=== PATIENT | female | born 1970 | race Hispanic/Latino ===

== ENCOUNTER 2017-02-15 11:48 | Emergency (ER) | payer MEDICAID ==
[2017-02-15] MEDS ORDERED: MORPHINE IV ONE (12:21)
[2017-02-15] MEDS ORDERED: ZOFRAN IV ONE (12:22)
--- NOTE | 2017-02-15 12:38 | Emergency Department Report ---
HPI - General Chief Complaint: Chest Pain Time Seen by Provider: 02/15/17 12:09 - HPI HPI: This is a 46-year-old female who presents to the emergency Department , after driving herself in to be seen, with complaint of chest pain that began around 8:30 AM this morning. It is been consistent since that time. It is midsternal to left side with some radiation up to the left side of the jaw, down to the left arm and across her back. It is associated with some nausea without vomiting and some shortness of breath. She tried some nitroglycerin 3 sublingual and a full dose aspirin for her symptoms prior to arrival without any relief. The patient has a history of CVA 3, DVT, PE, hypertension, hypothyroidism, hypercholesterol, CHF. The patient was here at [facility] in August of last year and had a cardiac catheterization that did not show any significant occlusions or ischemia and no stents were placed at that time. She also had normal LV function. Patient's primary care doctor is a Luz Naranjo. She sees a legal analyst through the [facility] group but her specific legal analyst just recently . No recent travel or sick contacts at home. ED Past Medical Hx - Past Medical History Previous Medical History?: Yes Hx Hypertension: Yes Hx CVA: Yes (left side slight weaker.) Hx Congestive Heart Failure: Yes Hx Diabetes: No Hx Deep Vein Thrombosis: Yes Hx Pulmonary Embolism: Yes (On Eloquis) Hx Seizures: Yes Hx Asthma: No Hx COPD: No Hx HIV: No Additional medical history: high cholesterol, hypothyroid - Surgical History Past Surgical History?: Yes Hx Cholecystectomy: Yes Hx Appendectomy: Yes Additional Surgical History: Left foot/ankle reconstruction, x3, sinus surgery Hyster - Social History Smoking Status: Never Smoker Substance Use Type: Prescribed - Medications Home Medications: Home Medications Medication Instructions Recorded Confirmed Last Taken Type FLUoxetine [PROzac] 10 mg PO QDAY 07/11/16 08/04/16 1 Day Ago History 10 Levothyroxine [Synthroid] 25 mcg PO QAM 07/11/16 08/04/16 1 Day Ago History 25 [place] Carbonate [Eskalith] 300 mg PO BID 07/11/16 08/04/16 1 Day Ago History 300 Nitroglycerin [Nitrostat] 0.4 mg SL Q5M PRN 07/11/16 08/04/16 1 Day Ago History 0.4 Pravastatin Sodium [Pravastatin] 10 mg PO QAM 07/11/16 08/04/16 1 Day Ago History 10 amLODIPine [Norvasc] 5 mg PO DAILY 07/11/16 08/04/16 1 Day Ago History 5 clonazePAM [KlonoPIN] 2 mg PO TID PRN 07/11/16 08/04/16 1 Day Ago History 2 levETIRAcetam [Keppra TAB] 1,500 mg PO BID 07/11/16 08/04/16 1 Day Ago History 1500 oxyCODONE /ACETAMINOPHEN [Percocet 1 tab PO Q12H PRN #8 tablet 07/12/16 1 Day Ago Rx 5/325 mg] 1 Aspirin [Aspirin BABY CHEW TAB] 81 mg PO QDAY 08/04/16 08/04/16 1 Day Ago History 81 Zolpidem [Ambien] 10 mg PO QHS 08/04/16 08/04/16 1 Day Ago History 10 Famotidine [Pepcid] 20 mg PO BID #60 tablet 08/06/16 Unknown Rx Pantoprazole [Protonix] 40 mg PO QDAY #30 tablet 02/15/17 Unknown Rx Sucralfate [Carafate] 1 gm PO ACHS #28 tablet 02/15/17 Unknown Rx ED Review of Systems ROS: Stated complaint: CHEST PAIN Other details as noted in HPI Comment: All other systems reviewed and negative Constitutional: denies: chills, fever Eyes: denies: eye pain, eye discharge, vision change ENT: denies: ear pain, throat pain Respiratory: shortness of breath. denies: cough Cardiovascular: chest pain. denies: palpitations Gastrointestinal: nausea. denies: abdominal pain Genitourinary: denies: urgency, dysuria, discharge Musculoskeletal: denies: back pain, joint swelling, arthralgia Skin: denies: rash, lesions Neurological: denies: headache, weakness, paresthesias Physical Exam - Physical Exam Vital Signs: Vital Signs 02/15/17 11:59 Temperature 98.6 F Pulse Rate 88 Respiratory 20 Rate Blood Pressure 144/92 O2 Sat by Pulse 100 Oximetry Physical Exam: GENERAL: The patient is well-developed well-nourished. HEENT: Normocephalic. Atraumatic. Extraocular motions are intact. Patient has moist mucous membranes. Pupils equal reactive to light bilaterally. NECK: Supple. Trachea is below. CHEST/LUNGS: Clear to auscultation. There is no respiratory distress noted. Chest pain is not reproducible to palpation of chest wall. HEART/CARDIOVASCULAR: Regular. There is no tachycardia. There is no gallop rub or murmur. ABDOMEN: Abdomen is soft, nontender. Patient has normal bowel sounds. There is no abdominal distention. SKIN: Skin is warm and dry. NEURO: The patient is awake, alert, and oriented. The patient is cooperative. The patient has no focal neurologic deficits. The patient has normal speech. MUSCULOSKELETAL: There is no tenderness or deformity. There is no limitation range of motion. There is no evidence of acute injury. ED Course Vital Signs 02/15/17 11:59 Temperature 98.6 F Pulse Rate 88 Respiratory 20 Rate Blood Pressure 144/92 O2 Sat by Pulse 100 Oximetry ED Medical Decision Making - Lab Data Result diagrams: 02/15/17 12:16 02/15/17 12:16 - EKG Data -: EKG Interpreted by Me EKG shows normal: sinus rhythm, axis (LAD), intervals, QRS complexes (LVH), ST- T waves (Non-specific ST-T) Rate: normal - EKG Data When compared to previous EKG there are: no significant change Interpretation: unchanged when compared t (08/04/16) - Radiology Data Radiology results: image reviewed interpreted by me: Chest x-ray did not show any acute process. Heart is normal shape and size. No effusions. No pneumothorax. No signs of pneumonia seen. - Medical Decision Making 46-year-old female presents the emergency department with complaint of left- sided chest pain with radiation to the jaw, arm and across the back. While the patient appears to have some records that stated the patient had a negative heart cath about 6 month ago, the patient is adamant that she was never previously admitted and never had a heart cath here at [facility]. Patient's labs of so far been unremarkable including a negative d-dimer and negative troponins 2. EKG does not show any signs of ST elevation HI. The patient will be seen by the admitting hospitalist, dr Resendiz, for further evaluation and either consultation or admission. - Differential Diagnosis HI, PE, CHF, Pneumonia Critical Care Time: No Critical care attestation.: If time is entered above; I have spent that time in minutes in the direct care of this critically ill patient, excluding procedure time. ED Disposition Clinical Impression: Chest pain Qualifiers: Chest pain type: unspecified Qualified Code(s): R07.9 - Chest pain, unspecified Disposition: OP ADMITTED IP TO THIS HOSP Is pt being admited?: Yes Condition: Stable Instructions: Chest Pain (ED) Prescriptions: Pantoprazole [Protonix] 40 mg PO QDAY #30 tablet Sucralfate [Carafate] 1 gm PO ACHS #28 tablet Referrals: PRIMARY CARE, [Primary Care Provider] - 3-5 Days Time of Disposition: 15:25
[2017-02-15 12:43] LABS: Basophils % (Auto) 0.8 % (0.0-1.8); Eosinophils % (Auto) 1.2 % (0.0-4.3); Hematocrit 36.2 % (30.3-42.9); Hemoglobin 11.3 gm/dl (10.1-14.3); Mean Corpuscular HGB Conc 31 % (30-34); Mean Corpuscular Volume 77 fl (79-97); Platelet Count 220 K/mm3 (140-440); Red Cell Distribution Width 18.4 % (13.2-15.2); White Blood Count 7.3 K/mm3 (4.5-11.0)
[2017-02-15 12:49] LABS: Mean Corpuscular Hemoglobin 24 pg (28-32)
[2017-02-15 12:54] LABS: INR 0.86 (0.87-1.13)
[2017-02-15 12:55] LABS: Partial Thromboplastin Time 24.7 Sec. (24.2-36.6)
[2017-02-15 13:03] LABS: Anion Gap 18 mmol/L; BUN/Creatinine Ratio 23.33; Blood Urea Nitrogen 14 mg/dL (7-17); Carbon Dioxide 21 mmol/L (22-30); Chloride 103.6 mmol/L (98-107); Glucose 90 mg/dL (65-100); Potassium 3.6 mmol/L (3.6-5.0); Sodium 139 mmol/L (137-145)
--- NOTE | 2017-02-15 13:44 | Admit Criteria Form ---
Admission Criteria Documentation: CARDIOLOGY GRG Clinical Indications for Admission to Inpatient Care ( Place 'X' for any and all applicable criteria): Hospital admission is needed for appropriate care of the patient because of ANY ONE of the following (1): [ ] I. Hemodynamic instability as indicated by ALL of the following (1)(2)(3) (4)(5) [ ]a) Vital signs or other findings not as expected for chronic patient condition or baseline [ ]b) Instability indicated by ANY ONE of the following: [ ]i) Hypotension [ ]ii) Symptomatic Tachycardia unresponsive to treatment ( e.g., analgesia, fluids, sedation as indicated) [ ]iii) Inadequate perfusion indicated by ANY ONE of the following: [ ] 1) Lactic acidosis (> 2 mmol/L) [ ] 2) New abnormal capillary refill (> 3 seconds) [ ] 3) Reduced urine output [ ] 4) New altered mental status [ ]iv) Orthostatic vital sign changes unresponsive to treatment (e.g., fluids) [ ]v) IV inotropic or vasopressor medication required to maintain adequate blood pressure or perfusion [ ] II. Severe heart failure as indicated by ANY ONE of the following(17)(18) [ ]a) Respiratory distress [ ]b) Hypotension [ ]c) Anasarca (refractory to outpatient therapy) [ ]d) Cardiac arrhythmias of immediate concern [ ]e) Myocardial ischemia [ ] III. Cardiac arrhythmias or findings of immediate concern indicated by ANY ONE of the following (19)(20): [ ] a) Heart rhythms that are inherently dangerous or unstable indicated by ANY ONE of the following (21)(22)(23): [ ] i) Resuscitated ventricular fibrillation or cardiac arrest [ ] ii) Ventricular escape rhythm [ ] iii) Sustained ventricular tachycardia (30 seconds or more of ventricular rhythm at greater than 100 beats per minute) [ ] iv) Nonsustained ventricular tachycardia and ANY ONE of the following: [ ] 1) Suspected cardiac ischemia as cause or consequence of ventricular tachycardia [ ] 2) In setting of acute myocarditis [ ] b) Unstable cardiac conduction defects indicated by ANY ONE of the following(23)(24)(25) [ ] i) Type II second-degree atrioventricular block [ ]ii) Third-degree atrioventricular block [ ]iii) New-onset left bundle branch block with suspected myocardial ischemia [ ]c) Any heart rhythm and ANY ONE of the following (21)(22)(26)(27) (28) [ ] i) Continuous long-term ECG monitoring needed (e.g., initiation of drug requiring monitoring for more than 24 hours) [ ] ii) Patient has automatic implanted cardioverter defibrillator that is repeatedly firing, malfunctioning, or in need of immediate adjustment of settings beyond the scope of ambulatory or observation care [ ]d) Heart rhythms of concern due to ANY ONE of the following: [ ] i) Hypotension [ ] ii) Respiratory distress [ ] iii) Association with other significant symptoms (e.g., bradycardia with syncope or ongoing dizziness, supraventricular tachycardia with chest pain (14)(15)(17) [ ] IV. Monitoring for cardiac contusion beyond the scope of observation care needed [A](30)(31)(32) [ ] V. Surgical or device complication (e.g., valve replacement complication , pacemaker dysfunction) (35)(41)(44)(45)(46) [ ] . Inpatient palliative care needed. [B](49) Also use Inpatient Palliative Care Criteria [ ] VII. Nonbacterial thrombotic (marantic) endocarditis (36)(43)(47)(48) [X] VIII. Cardiology condition, symptom, or finding for which emergency and observation care has failed or are not considered appropriate. [ ] IX. Acute valvular disease requiring inpatient as indicated by ANY ONE of the following (41) [ ]a) Acute valvular regurgitation (42) [ ]b) Noninfectious valvulitis (43) [ ]c) Obstructive valve thrombosis [ ]d) Paravalvular leak [ ]e) Other significant valvular disorder remaining after emergency or observation level of care (as appropriate) [ ]X. Pericardial disease requiring inpatient treatment as indicated by ANY ONE of the following (33)(34)(35)(36)(37) [ ]a) Suspected tamponade (38)(39)(40) [ ]b) Hemopericardium [ ]c) Other significant pericardial disorder remaining after emergency or observation level of care (as appropriate) [ ] XI. Cardiac ischemia beyond scope of emergency and observation care. [ ] XII. Hypertension requiring inpatient treatment as indicated by ANY ONE of the following (6)(7)(8) [ ]a) SBP greater than 220 mm Hg or DBP greater than 120 mmHg despite treatment [ ]b) SBP greater than 140 mm Hg or DBP greater than 100 mm Hg with evidence of acute end organ damage as indicated by ANY ONE of the following [ ] i) Altered mental status [ ] ii) Acute renal failure as indicated by new onset of ANY ONE of the following (9)(10)(11)(12)(13) [ ]1) 3-fold rise in serum creatinine from baseline [ ]2) Serum creatinine greater than 4 mg/dL ( 354 micromoles/L) with acute rise greater than 0.5 mg/dL (44.2 micromoles/L) [ ]3) Reduction of more than 75% in estimated glomerular filtration rate from baseline [ ]4) Estimated glomerular filtration rate less than 35 mL/min/1.73m2 (0.59 mL/sec/1.73m2) in child up to 18 years of age [ ]5) Cessation of urine output indicated by ALL of the following [ ]A. Adequate volume status [ ]B. Inadequate urine output as indicated by ANY ONE of the following [ ]a. Urine output less than 0.3 mL/kg/hr for 24 hours [ ]b. Anuria (urine output less than 0.1 mL/kg/hr) for 12 hours [ ] iii) Aortic dissection [ ] iv) Myocardial Ischemia [ ] v) Left ventricular heart failure [ ]vi) Retinal Hemorrhage [ ]vii) Other significant finding [ ]c) Hypertension in child requiring inpatient treatment as indicated by ALL of the following(14)(15)(16) [ ] i) Outpatient treatment not effective, not available, or not appropriate [ ]ii) SBP or DBP greater than 95th percentile for age [ ]iii) Evidence of acute end organ damage as indicated by ANY ONE of the following [ ]1) Altered mental status [ ]2) Acute renal failure as indicated by new onset of ANY ONE of the following(9)(10)(11)(12)(13) [ ]A. 3-fold rise in serum creatinine from baseline [ ]B. Serum creatinine greater than 4 mg/dL (354 micromoles/L) with acute rise greater than 0.5 mg/dL (44.2 micromoles/L) [ ]C. Reduction of more than 75% in estimated glomerular filtration rate from baseline [ ]D. Estimated glomerular filtration rate less than 35 mL/min/1.73m2 (0.59 mL/sec/1.73m2) in child up to 18 years of age [ ]E. Cessation of urine output indicated by ALL of the following [ ]a. Adequate volume status [ ]b. Inadequate urine output as indicated by ANY ONE of the following [ ]i) Urine output less than 0.3 mL/kg/hr for 24 hours [ ]ii) Anuria ( urine output less than 0.1 mL/kg/hr) for 12 hours [ ]3) Severe headache [ ]4) Visual disturbance [ ]5) Retinal hemorrhage [ ]6) Other significant finding [ ]XIII. Complications of transplanted heart indicated by ANY ONE of the following(61): [ ]a) Acute graft rejection requiring inpatient management (eg, intravenous immunosuppression)(62)(63) [ ]b) Acute graft heart failure indicated by ANY ONE of the following(64): [ ]i) Hemodynamic instability [ ]ii) Cardiac arrhythmias of immediate concern [ ]iii) Pulmonary edema that is very severe (eg, mechanical ventilation needed, imminent or likely, need for 100% oxygen to keep oxygen saturation above 90%) [ ]iv) Pulmonary edema that is persistent as indicated by ALL of the following: [ ]1) New need for oxygen therapy to keep oxygen saturation above 90% (or increased FiO2 need from baseline) [ ]2) Has not improved sufficiently with emergency department or observation care IV diuretics or other heart failure treatments[E] [ ]v) Altered mental status that is severe or persistent [ ]vi) Increased creatinine (new on laboratory test) with reduction of more than 50% in estimated glomerular filtration rate from baseline [ ]vii) Progressively (ongoing) rising creatinine (known from past laboratory test) with reduction of more than 25% in estimated glomerular filtration rate from baseline [ ]viii) Acute renal failure [ ]ix) Acute peripheral ischemia (eg, examination shows pulseless, cool, mottled, or cyanotic extremity) [ ]x) Pulmonary artery catheter monitoring needed [ ]xi) Other sign or symptom of heart failure requiring inpatient treatment (ie, too severe or not responsive to outpatient and observation care treatment) [ ]c) Infection requiring inpatient management (eg, Hemodynamic instability, need for intravenous antimicrobial treatment)(66)(67)(68)(69)(70) [ ]d) Cardiac allograft vasculopathy requiring inpatient management ( eg evidence of cardiac ischemia)(71) [ ]e) Other complication of transplanted heart (eg, stroke, severe pulmonary hypertension, severe valvular dysfunction) requiring inpatient management(72) The original [facility] [employer] content created by [facility] [employer] has been revised. The portions of the content which have been revised are identified through the use of italic text or in bold, and [facility] has neither reviewed nor approved the modified material. All other unmodified content is copyright [facility] [employer]. Please see references footnoted in the original [facility] [employer] edition 2016
--- NOTE | 2017-02-15 14:09 | XRay Report ---
AP CHEST: HISTORY: Short of breath AP view of the chest demonstrates a normal mediastinal and cardiac contour with clear lungs and normal bony and soft tissue structures. IMPRESSION: Unremarkable AP chest. No change since 08/04/16.
[2017-02-15] MEDS ORDERED: SUBLIMAZE IV ONE (14:25)
[2017-02-15] MEDS ORDERED: NACL 0.9% 250ML 250 ML IV ONE (14:25)
[2017-02-15 14:32] VITALS: BP 114/51
--- NOTE | 2017-02-15 15:01 | Consultation ---
Medications and Allergies Allergies Allergy/AdvReac Type Severity Reaction Status Date / Time butorphanol tartrate Allergy Shortness Verified 10/13/15 14:54 [From Stadol] of Breath ketorolac tromethamine Allergy Rash Verified 10/13/15 14:54 [From Toradol] tramadol Allergy Rash Verified 10/13/15 14:54 Home Medications Medication Instructions Recorded Confirmed Last Taken Type FLUoxetine [PROzac] 10 mg PO QDAY 07/11/16 08/04/16 1 Day Ago History 10 Levothyroxine [Synthroid] 25 mcg PO QAM 07/11/16 08/04/16 1 Day Ago History 25 [place] Carbonate [Eskalith] 300 mg PO BID 07/11/16 08/04/16 1 Day Ago History 300 Nitroglycerin [Nitrostat] 0.4 mg SL Q5M PRN 07/11/16 08/04/16 1 Day Ago History 0.4 Pravastatin Sodium [Pravastatin] 10 mg PO QAM 07/11/16 08/04/16 1 Day Ago History 10 amLODIPine [Norvasc] 5 mg PO DAILY 07/11/16 08/04/16 1 Day Ago History 5 clonazePAM [KlonoPIN] 2 mg PO TID PRN 07/11/16 08/04/16 1 Day Ago History 2 levETIRAcetam [Keppra TAB] 1,500 mg PO BID 07/11/16 08/04/16 1 Day Ago History 1500 oxyCODONE /ACETAMINOPHEN [Percocet 1 tab PO Q12H PRN #8 tablet 07/12/16 1 Day Ago Rx 5/325 mg] 1 Aspirin [Aspirin BABY CHEW TAB] 81 mg PO QDAY 08/04/16 08/04/16 1 Day Ago History 81 Zolpidem [Ambien] 10 mg PO QHS 08/04/16 08/04/16 1 Day Ago History 10 Famotidine [Pepcid] 20 mg PO BID #60 tablet 08/06/16 Unknown Rx Pantoprazole [Protonix] 40 mg PO QDAY #30 tablet 02/15/17 Unknown Rx Sucralfate [Carafate] 1 gm PO ACHS #28 tablet 02/15/17 Unknown Rx Exam - Constitutional Vitals: Temp Pulse Resp BP Pulse Ox 97.6 F 83 18 114/51 98 02/15/17 12:40 02/15/17 14:31 02/15/17 14:31 02/15/17 14:31 02/15/17 14:31 Results - Labs CBC & Chem 7: 02/15/17 12:16 02/15/17 12:16 Labs: Abnormal lab results 02/15/17 02/15/17 02/15/17 Range/Units 12:16 12:16 12:16 MCV 77 L (79-97) fl MCH 24 L (28-32) pg RDW 18.4 H (13.2-15.2) % Seg Neutrophils % 74.2 H (40.0-70.0) % PT 11.6 L (12.2-14.9) Sec. INR 0.86 L (0.87-1.13) Carbon Dioxide 21 L (22-30) mmol/L Creatinine 0.6 L (0.7-1.2) mg/dL
== END 2017-02-15 16:06 | disposition admitted as inpatient to this hospital (09) ==
LOC: ED 11:48
DX: R07.9 Chest pain, unspecified (principal); I10 Essential (primary) hypertension; Z86.73 Personal history of transient ischemic attack (TIA), and cerebral infarction without residual deficits; I82.409 Acute embolism and thrombosis of unspecified deep veins of unspecified lower extremity; I26.99 Other pulmonary embolism without acute cor pulmonale; R56.9 Unspecified convulsions; E78.00 Pure hypercholesterolemia, unspecified; E03.9 Hypothyroidism, unspecified; Z88.8 Allergy status to other drugs, medicaments and biological substances
CPT/HCPCS: 36415; 71010; 80048; 84443; 84484; 85025; 85379; 85610; 85730; 93005; 93010; 96374; 96375; 99285; J2270; J2405; J7050; J3010

== ENCOUNTER 2018-06-07 15:25 | Emergency (ER) | payer MEDICAID ==
[2018-06-07 15:46] VITALS: BP 116/71
[2018-06-07] MEDS ORDERED: ASPIRIN PO ONE (15:47)
[2018-06-07 16:17] LABS: Basophils % (Auto) 0.8 % (0.0-1.8); Eosinophils % (Auto) 0.8 % (0.0-4.3); Hemoglobin 11.5 gm/dl (10.1-14.3); Lymphocytes # (Auto) 0.9 K/mm3 (1.2-5.4); Lymphocytes % (Auto) 15.6 % (13.4-35.0); Mean Corpuscular HGB Conc 32 % (30-34); Mean Corpuscular Volume 71 fl (79-97); Monocytes # (Auto) 0.3 K/mm3 (0.0-0.8); Monocytes % (Auto) 5.1 % (0.0-7.3); Platelet Count 222 K/mm3 (140-440); Red Blood Count 5.05 M/mm3 (3.65-5.03); Red Cell Distribution Width 16.7 % (13.2-15.2)
[2018-06-07 16:20] LABS: Mean Corpuscular Hemoglobin 23 pg (28-32)
[2018-06-07 16:33] LABS: BUN/Creatinine Ratio 10; Blood Urea Nitrogen 9 mg/dL (7-17); Calcium 9.6 mg/dL (8.4-10.2); Hemolysis Index 2
--- NOTE | 2018-06-07 18:56 | Emergency Department Report ---
Blank Doc - Documentation Documentation: Patient was in room 29 and before I was able to get her chart and going to see this patient patient had become angry and left. Patient left without treatment.
== END 2018-06-07 19:07 ==
LOC: ED 15:25
DX: R07.89 Other chest pain (principal); R06.02 Shortness of breath; I50.9 Heart failure, unspecified; I10 Essential (primary) hypertension; Z79.82 Long term (current) use of aspirin; Z88.5 Allergy status to narcotic agent; Z88.6 Allergy status to analgesic agent; Z90.710 Acquired absence of both cervix and uterus; Z86.73 Personal history of transient ischemic attack (TIA), and cerebral infarction without residual deficits; Z90.49 Acquired absence of other specified parts of digestive tract; Z86.718 Personal history of other venous thrombosis and embolism; Z53.21 Procedure and treatment not carried out due to patient leaving prior to being seen by health care provider
CPT/HCPCS: 36415; 80048; 84484; 85025; 93005; 93010